=== PATIENT | male | born 1995 | race Two or more races ===

== ENCOUNTER 2022-09-08 21:45 | Inpatient (IN) | payer OTHER ==
[~2022-09-08] VITALS: Ht 172.7 cm; Wt 82.2 kg
[2022-09-09 01:52] LABS: BASOPHILS % (AUTO) 0.5 % (0.0-2.0); EOSINOPHILS % (AUTO) 3.9 % (1.0-6.0); HEMATOCRIT 43.7 % (41-53); HEMOGLOBIN 14.9 g/dL (13.5-17.5); LYMPHOCYTES # (AUTO) 1.6 K/uL (1.0-4.8); LYMPHOCYTES % (AUTO) 17.2 % (22.0-44.0); MEAN CORPUSCULAR HEMOGLOBIN 30.7 pg (26.0-34.0); MEAN CORPUSCULAR VOLUME 90 fL (80-100); MONOCYTES # (AUTO) 0.8 K/uL (0.1-1.0); MONOCYTES % (AUTO) 8.4 % (2.0-9.0); NEUTROPHILS # (AUTO) 6.3 K/uL (1.8-7.7); PLATELET COUNT (AUTO) 209 K/uL (150-450); RED BLOOD CELL COUNT(AUTO) 4.84 MIL/uL (4.50-5.90); RED CELL DISTRIBUTION WIDTH 14.2 % (11.5-14.5)
[2022-09-09 01:59] LABS: ANION GAP 10 mmol/L (8-16); CARBON DIOXIDE 29 mmol/L (22-29); CHLORIDE 104 mmol/L (98-107); CREATININE 0.77 mg/dL (0.60-1.30); GLOMERULAR FILTR. RATE CALC > 60 mL/min (>60); GLUCOSE,RANDOM 91 mg/dL (70-110); SODIUM SERUM 143 mmol/L (136-145)
[2022-09-09 02:04] LABS: ALANINE AMINOTRANSFERASE 16 U/L (12-78); ALBUMIN 3.6 g/dL (3.4-5.0); ALKALINE PHOSPHATASE 61 U/L (46-116); ASPARTATE AMINOTRANSFERASE 14 U/L (15-37); BILIRUBIN,TOTAL 0.4 mg/dL (0.1-1.0); TOTAL PROTEIN, SERUM 6.3 g/dL (6.4-8.2)
[2022-09-09] MEDS ORDERED: LEVE500T8 PO (03:03)
[2022-09-09] MEDS ORDERED: CARB100C9 PO (03:04)
[2022-09-09 03:30] LABS: COVID AG,FIA SOURCE NASAL SWAB
[2022-09-09] MEDS ORDERED: LORazepam 1 MG TABLET PO ONE (09:45)
[2022-09-09] MEDS ORDERED: HALOPERIDOL 5 MG TABLET PO ONE (09:45)
[2022-09-09] MEDS ORDERED: DiphenhydrAMINE HCL 25 MG CAPSULE PO ONE (09:45)
[2022-09-09] MEDS ORDERED: LORazepam 2 MG/ML VIAL ONE (09:51)
[2022-09-09] MEDS ORDERED: DiphenhydrAMINE HCL 50 MG/ML VIAL ONE (09:51)
[2022-09-09] MEDS ORDERED: HALOPERIDOL LACTATE 5 MG/ML VIAL ONE (09:52)
[2022-09-09] MEDS ORDERED: DiphenhydrAMINE HCL 50 MG/ML VIAL IM ONE (10:00)
[2022-09-09] MEDS ORDERED: LORazepam 2 MG/ML VIAL IM ONE (10:00)
[2022-09-09] MEDS ORDERED: HALOPERIDOL LACTATE 5 MG/ML VIAL IM ONE (10:00)
[2022-09-09] MEDS ORDERED: POTASSIUM CHLORIDE 20 MEQ ER TABLET PO PRN (10:15)
[2022-09-09] MEDS ORDERED: POTASSIUM CHL 10 MEQ/WATER 50 ML IV PRN (10:15)
[2022-09-09] MEDS: PANTOPRAZOLE SODIUM 40 MG/VIAL IVP SCH (10:45)
[2022-09-09] MEDS: DOCUSATE SODIUM 100 MG CAPSULE PO SCH ×2 (10:45→21:00)
[2022-09-09] MEDS ORDERED: 0.9% SODIUM CHLORIDE 10 ML SYRINGE IVP PRN (10:45)
[2022-09-09] MEDS ORDERED: OxyCODONE HCL/ACETAMINOPHEN 5-325 MG TABLET PO PRN ×2 (10:45)
[2022-09-09] MEDS: HEPARIN SODIUM,PORCINE 5,000 UNITS/ML VIAL SQ SCH ×2 (10:45→21:00)
[2022-09-09] MEDS ORDERED: QUEtiapine FUMARATE 25 MG TABLET PO PRN (11:00)
[2022-09-09 11:43] VITALS: BP 95/59; PULSE 50; RESP 18; TEMP 98.3
[2022-09-09 20:10] VITALS: BP 144/65; PULSE 75; RESP 18; TEMP 98.1
[2022-09-10 05:59] VITALS: BP 129/80; PULSE 72; RESP 18; TEMP 98.1
[2022-09-10 07:14] LABS: BASOPHILS % (AUTO) 0.6 % (0.0-2.0); EOSINOPHILS % (AUTO) 6.1 % (1.0-6.0); HEMATOCRIT 44.5 % (41-53); HEMOGLOBIN 15.2 g/dL (13.5-17.5); LYMPHOCYTES # (AUTO) 1.3 K/uL (1.0-4.8); LYMPHOCYTES % (AUTO) 26.5 % (22.0-44.0); MEAN CORPUSCULAR HEMOGLOBIN 30.9 pg (26.0-34.0); MEAN CORPUSCULAR HGB CONC 34.2 G/dL (31.0-37.0); MEAN CORPUSCULAR VOLUME 91 fL (80-100); MONOCYTES # (AUTO) 0.4 K/uL (0.1-1.0); MONOCYTES % (AUTO) 9.3 % (2.0-9.0); NEUTROPHILS # (AUTO) 2.8 K/uL (1.8-7.7); NEUTROPHILS % (AUTO) 57.5 % (40.0-70.0); PLATELET COUNT (AUTO) 217 K/uL (150-450); RED BLOOD CELL COUNT(AUTO) 4.92 MIL/uL (4.50-5.90); RED CELL DISTRIBUTION WIDTH 14.3 % (11.5-14.5)
[2022-09-10 07:25] LABS: ANION GAP 5 mmol/L (8-16); CALCIUM, TOTAL 8.7 mg/dL (8.8-10.5); CARBON DIOXIDE 30 mmol/L (22-29); CHLORIDE 106 mmol/L (98-107); CREATININE 0.82 mg/dL (0.60-1.30); GLOMERULAR FILTR. RATE CALC > 60 mL/min (>60); GLUCOSE,RANDOM 90 mg/dL (70-110); SODIUM SERUM 141 mmol/L (136-145)
[2022-09-10 07:40] VITALS: BP 110/73; PULSE 77; RESP 20; TEMP 97.8
[2022-09-10] MEDS: DOCUSATE SODIUM 100 MG CAPSULE PO SCH ×2 (09:00→21:00)
[2022-09-10] MEDS: PANTOPRAZOLE SODIUM 40 MG/VIAL IVP SCH (09:00)
[2022-09-10] MEDS: CarBAMazepine 100 MG CHEWABLE TABLET PO SCH ×3 (09:00→21:00)
[2022-09-10] MEDS: HEPARIN SODIUM,PORCINE 5,000 UNITS/ML VIAL SQ SCH ×2 (09:00→21:00)
[2022-09-10] MEDS ORDERED: LevETIRAcetam 500 MG TABLET PO SCH (09:00)
[2022-09-10] MEDS ORDERED: SODIUM CHLORIDE 0.9% 500 ML IV ONE (13:06)
[2022-09-10] MEDS: DiphenhydrAMINE HCL 25 MG CAPSULE PO PRN ×2 (13:17→20:29)
[2022-09-10] MEDS: LevETIRAcetam 1,000 MG in DEXTROSE 5%-WATER 100 ML IV SCH (13:17)
[2022-09-10] MEDS: BuPROPion HCL 150 MG SR TABLET PO SCH (13:19)
[2022-09-10] MEDS: ARIPiprazole 10 MG TABLET PO SCH (13:19)
[2022-09-10 14:07] LABS: GLUCOMETER DEV NAME(LOC) 4E.2
[2022-09-10 19:52] VITALS: BP 103/62; PULSE 72; RESP 20; TEMP 98.6
[2022-09-11] MEDS: LevETIRAcetam 1,000 MG in DEXTROSE 5%-WATER 100 ML IV SCH (00:47)
[2022-09-11 05:30] VITALS: BP 119/63; PULSE 69; RESP 20; TEMP 98
[2022-09-11] MEDS: PANTOPRAZOLE SODIUM 40 MG/VIAL IVP SCH (08:58)
[2022-09-11] MEDS: HEPARIN SODIUM,PORCINE 5,000 UNITS/ML VIAL SQ SCH (08:58)
[2022-09-11] MEDS: BuPROPion HCL 150 MG SR TABLET PO SCH (08:59)
[2022-09-11] MEDS: CarBAMazepine 100 MG CHEWABLE TABLET PO SCH (08:59)
[2022-09-11] MEDS: DOCUSATE SODIUM 100 MG CAPSULE PO SCH (08:59)
[2022-09-11] MEDS: ARIPiprazole 10 MG TABLET PO SCH (08:59)
[2022-09-11] MEDS ORDERED: PIPERACILLIN/TAZO 3.375 GM/D5W 50 ML IV SCH (12:00)
[2022-09-11 12:03] VITALS: BP 121/71; PULSE 67; RESP 20; TEMP 99
[2022-09-11] MEDS ORDERED: LevETIRAcetam 500 MG TABLET PO SCH (21:00)
[2022-09-12] MEDS ORDERED: PANTOPRAZOLE SODIUM 40 MG DR TABLET PO SCH (09:00)
== END 2022-09-11 16:15 | disposition left against medical advice (07) | DRG 885 ==
LOC: EMS 21:46 → AHU 09-09 10:08 → 6S 09-09 11:00
PROVIDERS: ADMIT Internal Medicine; ATTEND Internal Medicine
DX: F25.1 Schizoaffective disorder, depressive type (principal); G40.909 Epilepsy, unspecified, not intractable, without status epilepticus; F32.A Depression, unspecified; Z20.822 Contact with and (suspected) exposure to COVID-19; Z53.29 Procedure and treatment not carried out because of patient's decision for other reasons; Z79.899 Other long term (current) drug therapy
CPT/HCPCS: 80048; 80053; 82962; 85025; 99285; C9113; G0480; G0482; J0712; J1200; J1630; J1644; J2060; J2543; J7040; J7060

== ENCOUNTER 2022-09-24 18:39 | Emergency (ER) | payer OTHER ==
[~2022-09-24] VITALS: Ht 170.2 cm; Wt 81.8 kg
[~2022-09-24 18:39] MED LIST: CARB100C9 PO; LEVE500T8 PO; LISI-893 PO; OLAN7.5T22 PO
[2022-09-24] MEDS ORDERED: LevETIRAcetam 1,500 MG in DEXTROSE 5%-WATER 100 ML IV ONE (20:00)
[2022-09-24] MEDS ORDERED: SODIUM CHLORIDE 0.9% 1,000 ML IV ONE (20:00)
[2022-09-24 20:19] LABS: BASOPHILS % (AUTO) 0.8 % (0.0-2.0); EOSINOPHILS % (AUTO) 2.8 % (1.0-6.0); HEMATOCRIT 47.2 % (41-53); LYMPHOCYTES # (AUTO) 1.4 K/uL (1.0-4.8); LYMPHOCYTES % (AUTO) 22.4 % (22.0-44.0); MEAN CORPUSCULAR HEMOGLOBIN 30.8 pg (26.0-34.0); MEAN CORPUSCULAR HGB CONC 33.9 G/dL (31.0-37.0); MEAN CORPUSCULAR VOLUME 91 fL (80-100); MONOCYTES # (AUTO) 0.5 K/uL (0.1-1.0); MONOCYTES % (AUTO) 7.6 % (2.0-9.0); NEUTROPHILS # (AUTO) 4.2 K/uL (1.8-7.7); NEUTROPHILS % (AUTO) 66.4 % (40.0-70.0); PLATELET COUNT (AUTO) 251 K/uL (150-450); RED CELL DISTRIBUTION WIDTH 14.4 % (11.5-14.5)
[2022-09-24 20:29] LABS: ANION GAP 12 mmol/L (8-16); CALCIUM, TOTAL 9.2 mg/dL (8.8-10.5); CARBON DIOXIDE 26 mmol/L (22-29); CHLORIDE 101 mmol/L (98-107); CREATININE 0.99 mg/dL (0.60-1.30); GLOMERULAR FILTR. RATE CALC > 60 mL/min (>60); GLUCOSE,RANDOM 110 mg/dL (70-110); POTASSIUM 4.3 mmol/L (3.5-5.1); SODIUM SERUM 139 mmol/L (136-145)
[2022-09-24 20:35] LABS: ALANINE AMINOTRANSFERASE 17 U/L (12-78); ALBUMIN 4.3 g/dL (3.4-5.0); ALKALINE PHOSPHATASE 75 U/L (46-116); ASPARTATE AMINOTRANSFERASE 26 U/L (15-37); BILIRUBIN,TOTAL 0.2 mg/dL (0.1-1.0); TOTAL PROTEIN, SERUM 7.3 g/dL (6.4-8.2)
[2022-09-24 20:37] LABS: LACTIC ACID 1.1 mmol/L (0.4-2.0)
[2022-09-24 20:54] VITALS: TEMP 98.7
[2022-09-24] MEDS: HALOPERIDOL 5 MG TABLET PO ONE ×2 (21:39→21:41)
[2022-09-24] MEDS ORDERED: HALOPERIDOL 5 MG TABLET PO ONE (23:30)
[2022-09-25 00:36] VITALS: BP 120/80; PULSE 73; RESP 18
== END 2022-09-25 00:56 ==
LOC: EMS 18:39
DX: G40.89 Other seizures (principal); I10 Essential (primary) hypertension; F41.9 Anxiety disorder, unspecified; F60.2 Antisocial personality disorder; Z79.899 Other long term (current) drug therapy
CPT/HCPCS: 80053; 83605; 85025; 36415; 70450; 99285; 96365; J0712; J7060; J7030